=== PATIENT | male | born 1990 | race American Indian/Alaskan Native ===

== ENCOUNTER 2021-01-21 01:44 | Emergency (ER) | payer SELFPAY ==
[2021-01-21] MEDS ORDERED: Midazolam 1 MG/ML 2 ML SDV IV ONE (01:45)
[2021-01-21] MEDS ORDERED: fentaNYL 100 MCG/2 ML SDV IV ONE (01:45)
[2021-01-21] MEDS ORDERED: Lidocaine 2% 20 ML MDV INFILT ONE (01:45)
[2021-01-21] MEDS ORDERED: ceFAZolin 1 GM Vial IVPUSH ONE (01:45)
[2021-01-21] MEDS ORDERED: Lactated Ringers 1,000 ML IV ONE (01:45)
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
== END 2021-01-21 05:20 | disposition home or self-care (01) ==
LOC: FB.ED 01:44
DX: S61.012A Laceration without foreign body of left thumb without damage to nail, initial encounter (principal); S61.412A Laceration without foreign body of left hand, initial encounter; W26.8XXA Contact with other sharp object(s), not elsewhere classified, initial encounter
CPT/HCPCS: 12002; 73130; 99283; J0690; J2250; J3010; J7120